=== PATIENT | female | born 1965 | race Caucasian/White ===

== ENCOUNTER → 2016-08-30 | Outpatient (CLI) | payer BC ==
[~2016-08-30] MED LIST: [UNRECOGNIZED DRUG - OTHER]
== END ==
LOC: MC.RAD 14:20
DX: Z12.31 Encounter for screening mammogram for malignant neoplasm of breast (principal); Z85.3 Personal history of malignant neoplasm of breast

== ENCOUNTER → 2018-01-27 | Outpatient (CLI) | payer BC | LOC: MC.RAD 11:17 | DX: Z12.31 Encounter for screening mammogram for malignant neoplasm of breast (principal); Z85.3 Personal history of malignant neoplasm of breast; Z90.11 Acquired absence of right breast and nipple ==

== ENCOUNTER → 2019-03-05 | Outpatient (CLI) | payer BC | LOC: MC.RAD 15:53 | DX: Z12.31 Encounter for screening mammogram for malignant neoplasm of breast (principal); C50.811 Malignant neoplasm of overlapping sites of right female breast; Z90.11 Acquired absence of right breast and nipple ==

== ENCOUNTER → 2020-02-23 | Outpatient (CLI) | payer BC | LOC: MC.RAD 11:21 | DX: Z12.31 Encounter for screening mammogram for malignant neoplasm of breast (principal) ==

== ENCOUNTER → 2020-03-17 | Outpatient (CLI) | payer BC | LOC: MC.RAD 03-08 11:30 | DX: Z12.31 Encounter for screening mammogram for malignant neoplasm of breast (principal); Z90.11 Acquired absence of right breast and nipple ==

== ENCOUNTER → 2021-05-11 | Outpatient (CLI) | payer BC | LOC: MC.RAD 08:07 | DX: Z12.31 Encounter for screening mammogram for malignant neoplasm of breast (principal) ==

== ENCOUNTER → 2022-06-05 | Outpatient (CLI) | payer BC | LOC: MC.RAD 07:33 | DX: Z12.31 Encounter for screening mammogram for malignant neoplasm of breast (principal); Z90.11 Acquired absence of right breast and nipple ==

== ENCOUNTER → 2023-06-24 | Outpatient (CLI) | payer BC | LOC: MC.RAD 07:15 | DX: Z12.31 Encounter for screening mammogram for malignant neoplasm of breast (principal) ==